=== PATIENT | male | born 1940 | race Caucasian/White ===

== ENCOUNTER 2017-10-27 06:09 | Day surgery (SDC) | payer OTHER ==
[~2017-10-27 06:09] MED LIST: CATAFLAM50 MG PO; INTESTINEX680 MG PO; OMEPRAZOLE20 MG PO; PERCOCET 5/3251 TAB PO; TAMS0.4C PO; [UNRECOGNIZED DRUG - OTHER] PO
== END 2017-10-27 11:35 | disposition home or self-care (01) ==
LOC: AMB-ENDOS 06:09 → CIR.AMB 13:00 → AMB-ENDOS 13:00
DX: K57.30 Diverticulosis of large intestine without perforation or abscess without bleeding (principal)

== ENCOUNTER 2022-11-22 11:26 | Inpatient (IN) | payer OTHER ==
[~2022-11-22] VITALS: Ht 182.9 cm; Wt 76.2 kg
[2022-11-22] MEDS ORDERED: ELIQUIS5 MG PO (11:38)
[2022-11-22] MEDS ORDERED: AMIODARONE HCL200 MG (11:38)
== END 2022-11-26 14:06 | disposition home or self-care (01) | DRG 311 ==
LOC: ER 11:26 → SEC-K 19:18 → SURH 19:18 → SURG 19:18 → SURH 19:30 → SEC-K 22:32 → SURH 11-23 10:30
PROVIDERS: ADMIT Internal Medicine; ATTEND Internal Medicine
PROC: 4A12X4Z Monitoring of Cardiac Electrical Activity, External Approach (ICD-10-PCS; principal; 2022-11-22)
PROC: BW21ZZZ Computerized Tomography (CT Scan) of Abdomen and Pelvis (ICD-10-PCS; 2022-11-22)
PROC: B246ZZZ Ultrasonography of Right and Left Heart (ICD-10-PCS; 2022-11-22)
PROC: 3E0F7SF Introduction of Other Gas into Respiratory Tract, Via Natural or Artificial Opening (ICD-10-PCS; 2022-11-22)
PROC: 0D9670Z Drainage of Stomach with Drainage Device, Via Natural or Artificial Opening (ICD-10-PCS; 2022-11-22)
PROC: 02HV33Z Insertion of Infusion Device into Superior Vena Cava, Percutaneous Approach (ICD-10-PCS; 2022-11-23)
PROC: 3E0436Z Introduction of Nutritional Substance into Central Vein, Percutaneous Approach (ICD-10-PCS; 2022-11-23)
PROC: 3E0F7GC Introduction of Other Therapeutic Substance into Respiratory Tract, Via Natural or Artificial Opening (ICD-10-PCS; 2022-11-25)
DX: I24.9 Acute ischemic heart disease, unspecified (principal); K56.600 Partial intestinal obstruction, unspecified as to cause; I11.9 Hypertensive heart disease without heart failure; I48.0 Paroxysmal atrial fibrillation; J44.9 Chronic obstructive pulmonary disease, unspecified; G47.33 Obstructive sleep apnea (adult) (pediatric); Z79.01 Long term (current) use of anticoagulants; Z20.822 Contact with and (suspected) exposure to COVID-19